=== PATIENT | female | born 1985 | race Caucasian/White ===

== ENCOUNTER 2018-07-26 22:18 | Emergency (ER) | payer OTHER ==
[~2018-07-26] VITALS: Ht 162.6 cm; Wt 70.0 kg
[2018-07-26 22:26] VITALS: Ht 162.6 cm; Wt 70.0 kg
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
[2018-07-27] MEDS ORDERED: IBUP-1542 PO (04:11)
[2018-07-27] MEDS ORDERED: DIPHTH/TET/ACEL PERTUSS (ADULT) 0.5 ML VIAL IM* ONE (04:30)
[2018-07-27 04:42] VITALS: BP 105/60; PULSE 99; RESP 16
== END 2018-07-27 04:43 | disposition home or self-care (01) ==
LOC: E/R 22:18
DX: S09.90XA Unspecified injury of head, initial encounter (principal); F17.210 Nicotine dependence, cigarettes, uncomplicated; S80.812A Abrasion, left lower leg, initial encounter; V13.4XXA Pedal cycle driver injured in collision with car, pick-up truck or van in traffic accident, initial encounter; Z23 Encounter for immunization
CPT/HCPCS: 81025; 90471; 90715; Z7502